=== PATIENT | male | born 1970 | race Caucasian/White ===

== ENCOUNTER 2019-12-11 22:19 | Emergency (ER) | payer SELFPAY ==
[2019-12-11] MEDS ORDERED: Lidocaine 2% Jelly 5 ML TUBE ONE (23:08)
[2019-12-11] MEDS ORDERED: Fentanyl 100 MCG/2 ML VIAL ONE (23:08)
== END 2019-12-11 23:46 | disposition home or self-care (01) ==
LOC: ERS 22:19
DX: K22.2 Esophageal obstruction (principal)
CPT/HCPCS: 99283; J3010